=== PATIENT | female | born 1965 | race Caucasian/White ===

== ENCOUNTER 2016-06-14 15:21 | Emergency (ER) | payer OTHER ==
[~2016-06-14] VITALS: Ht 154.9 cm; Wt 84.0 kg
[~2016-06-14 15:21] MED LIST: LEVAQUIN500 MG PO; LORAZEPAM0.5 MG PO; PHENOBARBITAL64.8 MG PO; TOPIRAMATE100 MG PO
[2016-06-14] MEDS ORDERED: MOTRIN800 MG PO (17:06)
[2016-06-14 17:27] VITALS: BP 148/88
== END 2016-06-14 17:33 | disposition home or self-care (01) ==
LOC: EME 15:21
PROC: 2W3DX1Z Immobilization of Left Lower Arm using Splint (ICD-10-PCS; principal; 2016-06-14)
DX: S52.592A Other fractures of lower end of left radius, initial encounter for closed fracture (principal); W18.39XA Other fall on same level, initial encounter; Y92.219 Unspecified school as the place of occurrence of the external cause; F79 Unspecified intellectual disabilities
CPT/HCPCS: 73030; 73060; 73090; 73110; 73130; 99281; 99285